=== PATIENT | male | born 1980 | race Caucasian/White ===

== ENCOUNTER → 2020-06-04 | Outpatient (CLI) | payer BC ==
[~2020-06-04] MED LIST: LIBRIUM CAP 2525 MG PO; PRENATAL FORMU1 EAC2 PO; PROTONIX40 MG PO; PROZAC20 MG PO; SYNTHROID100 MCG PO; ZANTAC150 MG PO; [UNRECOGNIZED DRUG - REMARK]
[2020-06-04 12:48] LABS: HEMOGLOBIN 17.3 gm/dl (14.0-17.5); RED BLOOD COUNT 4.93 M/UL (4.20-5.50); WHITE BLOOD COUNT 5.1 K/UL (4.5-11.0)
[2020-06-04 13:13] LABS: BUN/CREATININE RATIO 8 (0-10); GAMMA GLUTAMYL TRANSPEPTIDASE 315 U/L (7-64)
== END ==
LOC: LAB 11:12
PROVIDERS: Nurse Practitioner
DX: E78.2 Mixed hyperlipidemia (principal); I10 Essential (primary) hypertension; E55.9 Vitamin D deficiency, unspecified; R53.83 Other fatigue; F10.20 Alcohol dependence, uncomplicated
CPT/HCPCS: 36415; 80053; 80061; 82150; 82607; 82977; 83690; 84443; 85027

== ENCOUNTER → 2020-11-05 | Outpatient (CLI) | payer BC ==
[2020-11-05 15:37] LABS: HEMOGLOBIN 17.3 gm/dl (14.0-17.5); RED BLOOD COUNT 4.74 M/UL (4.20-5.50); WHITE BLOOD COUNT 5.9 K/UL (4.5-11.0)
[2020-11-05 16:04] LABS: BUN/CREATININE RATIO 6 (0-10)
== END ==
LOC: LAB 14:56
DX: I10 Essential (primary) hypertension (principal); R94.5 Abnormal results of liver function studies; E78.5 Hyperlipidemia, unspecified
CPT/HCPCS: 36415; 80053; 80061; 84443; 85027

== ENCOUNTER → 2021-01-05 | Outpatient (CLI) | payer BC | LOC: KOH-I 12:53 | DX: R07.9 Chest pain, unspecified (principal) | CPT/HCPCS: 71250 ==

== ENCOUNTER 2021-06-24 04:44 | Emergency (ER) | payer BC | END 2021-06-24 05:55 | disposition home or self-care (01) | LOC: ER1 04:44 | DX: F10.129 Alcohol abuse with intoxication, unspecified (principal) | CPT/HCPCS: 99283 ==

== ENCOUNTER 2021-08-26 18:12 | Emergency (ER) | payer BC ==
[2021-08-26] MEDS ORDERED: PERCOCET 5/325 T1 EA PO (22:58)
== END 2021-08-26 23:16 | disposition home or self-care (01) ==
LOC: ER1 18:12
DX: S52.121A Displaced fracture of head of right radius, initial encounter for closed fracture (principal); S63.502A Unspecified sprain of left wrist, initial encounter; W10.9XXA Fall (on) (from) unspecified stairs and steps, initial encounter; Y92.009 Unspecified place in unspecified non-institutional (private) residence as the place of occurrence of the external cause
CPT/HCPCS: 73070; 73110; 73200; 99283